=== PATIENT | female | born 1995 | race Caucasian/White ===

== ENCOUNTER 2022-10-16 18:22 | Emergency (ER) | payer OTHER, SELFPAY ==
--- NOTE | 2022-10-16 18:25 | ED.SKABFB ---
HPI - Skin/Abscess/Foreign Bdy General Chief complaint: Skin/Abscess/Foreign Body Stated complaint: fever blister on nose Time Seen by Provider: 10/16/22 18:42 Source: patient and RN notes reviewed Mode of arrival: ambulatory Limitations: no limitations History of Present Illness HPI narrative: 27-year-old female presents with concern for new lesion on her left upper eyelid. She reports she gets cold sores on her nose, she recently had cold sore on her nose. She reports she used topical treatment and it healed, however she had a family and was crying a lot and rubbing her nose and her eyea, she now has a lesion on her left upper eyelid that is painful. She reports some mild blurry vision. She denies any my pain, reports upper eyelid pain. MD complaint: lesion Related Data Home Medications Medication Instructions Recorded Confirmed levothyroxine 25 mcg tablet 25 mcg PO DAILY 10/16/22 10/16/22 norgestimate 0.25 mg-ethinyl 1 tablet PO DAILY 10/16/22 10/16/22 estradiol 35 mcg tablet (Sprintec (28)) Allergies Allergy/AdvReac Type Severity Reaction Status Date / Time No Known Allergies Allergy Mild Verified 07/15/09 19:23 Review of Systems Review of Systems: CONSTITUTIONAL: Denies malaise, chills, sweats, or fever. EYES: Reports blurry vision in the left eye, Reports a lesion and pain to her left upper eyelid ENT: Denies rhinorrhea, congestion, sinus pain, otalgia or sore throat. NEUROLOGIC: Denies numbness, weakness, or headache. PSYCHIATRIC: Denies anxiety or depression. All systems reviewed & are unremarkable except as noted in HPI and below PMFSH Comments At time of signature, agree with nursing past medical, surgical, social and family history. There is no relevant family history pertinent to the presenting complaint Exam Narrative: GENERAL: Well-appearing, well-nourished, and in no acute distress. HEAD: Normocephalic, atraumatic. EYES: PERRLA, conjunctiva and sclera clear bilaterally, and EOMI. Ophthalmic exam unremarkable bilaterally. No nystagmus. Left upper eyelid mildly edematous and erythematous with a herpetic lesion noted on the lash line. Right Upper and lower eyelid unremarkable, no periorbital edema noted. Wood's lamp exam of the left eye unremarkable, no dendritic lesions noted ENT: Nares clear, no rhinorrhea or epistaxis. Mucous membranes moist. NECK: Supple. CHEST: No respiratory distress. Speaks in full sentences. HEART: Regular rate and rhythm. SKIN: Warm, dry, no visible rash. NEURO: Alert and oriented x3. PSYCH: Normal mood and affect Course Course Emergency Course: Patient is aware of diagnosis, understands and agrees to treatment plan. Anticipatory guidance given. Patient agrees to follow-up as directed and is aware of reasons to seek care at the emergency department. Portions of this record may have been created with voice recognition software Level of Care: Express Care Visit Vital Signs Vital signs: Reviewed. MDM - Skin/Abscess/Foreign Bdy MDM Narrative Medical decision making narrative: Consideration of the following conditions may be warranted for the presenting problem, they are not final diagnoses: Bacterial conjunctivitis, allergic conjunctivitis, viral conjunctivitis, foreign body, blepharitis, chalazion, hordeolum, corneal abrasion, preseptal cellulitis, orbital cellulitis. No evidence of proptosis, ophthalmoplegia, vision loss, pain with eye movement. Exam findings show no acute concerns or changes; patient is non-toxic appearing and is in no distress. Patient is appropriate for outpatient treatment and follow-up. Critical Care Time Critical Care Time Critical Care Time: No Discharge Plan Discharge Clinical Impression: Herpes zoster blepharitis Patient Disposition: Home, Self-Care Condition: Stable Instructions: Blepharitis (ED) Additional Instructions: Take medications as directed. You can use a cold washcloth for swelling your ey
[2022-10-16 18:39] VITALS: BP 149/98; PULSE 109; RESP 16; TEMP 37.2; O2SAT 100
== END 2022-10-16 19:11 | disposition home or self-care (01) ==
PROVIDERS: Emergency Provider Nurse Practitioner; PCP Physician Assistant
DX: B02.39 Other herpes zoster eye disease (principal); E03.9 Hypothyroidism, unspecified
CPT/HCPCS: 99213; A9270; G0463

== ENCOUNTER 2023-05-12 17:21 | Emergency (ER) | payer OTHER, SELFPAY ==
--- NOTE | 2023-05-12 17:30 | ED.URI ---
HPI - URI/Sore Throat General Chief Complaint: Eye Problems Stated Complaint: SINUS CONGESITON/EYE DRAINAGE Time Seen by Provider: 05/12/23 17:30 Source: patient Mode of arrival: ambulatory Limitations: no limitations History of Present Illness HPI Narrative: 27 yo F presents with c/o nasal congestion, sinus pressure for 2 days. Reports R eye redness, drainage for 1 day. Afebrile. Mild cough. No CP or SOB. denies N/V/d. Taking carla. All systems reviewed and negative except as noted above. Related Data Home Medications Medication Instructions Recorded Confirmed levothyroxine 25 mcg tablet 25 mcg PO DAILY 10/16/22 05/12/23 Allergies Allergy/AdvReac Type Severity Reaction Status Date / Time No Known Allergies Allergy Mild Verified 05/12/23 17:48 Review of Systems Review of Systems: CONSTITUTIONAL: Denies fever, chills, or sweats. EYES: Denies visual changes. Reports right eye redness and discharge. ENT: Reports rhinorrhea, congestion. Denies sore throat, or otalgia. CARDIOVASCULAR: Denies chest pain, palpitations, or edema. RESPIRATORY: Denies cough or dyspnea. GASTROINTESTINAL: Denies abdominal pain, nausea, vomiting, or diarrhea. GENITOURINARY: Denies dysuria or hematuria. SKIN: Denies rash or itching. MUSCULOSKELETAL: Denies back pain, joint pain, or myalgia. NEUROLOGIC: Denies headache, numbness, or weakness. PSYCHIATRIC: Denies anxiety or depression. All other systems reviewed are negative, except as documented in HPI. PMFSH Comments At time of signature, agree with nursing past medical, surgical, social and family history. There is no relevant family history pertinent to the presenting complaint. Exam Narrative: GENERAL: This is a well-nourished, well-developed patient, in no apparent distress. HEAD: normocephalic, atraumatic. EYES: PERRL. Sclera and conjunctiva erythematous to right eye with purulent drainage. Vision is grossly intact. EARS: External ears normal, auditory canals clear and without drainage, TMs normal without perforation. Hearing grossly intact. NOSE: External nose normal with clear nasal drainage, mild erythema to bilateral nares without swelling. THROAT: Mucous membranes moist, clear postnasal drainage. NECK: Neck supple, non-tender without lymphadenopathy, masses or thyromegaly. CARDIOVASCULAR: Regular rate and rhythm without murmurs, gallops, or rubs. RESPIRATORY: Clear to auscultation. Breath sounds equal bilaterally. No wheezes, rales, or rhonchi. SKIN: warm, Dry, intact with no suspicious lesions or rash, good texture and turgor. NEURO: awake, alert, and oriented to person, place and time. There were no obvious focal neurologic abnormalities. EXTREMITIES: No joint tenderness, effusion, or edema noted. Course Course Level of Care: Express Care Visit Vital Signs Vital signs: Vital Signs Temperature 36.7 C 05/12/23 17:34 Pulse Rate 96 05/12/23 17:34 Respiratory Rate 16 05/12/23 17:34 Blood Pressure 141/89 H 05/12/23 17:34 Pulse Oximetry 100 05/12/23 17:34 Temperature 36.7 C 05/12/23 17:34 Pulse Rate 96 05/12/23 17:34 Respiratory Rate 16 05/12/23 17:34 Blood Pressure 141/89 H 05/12/23 17:34 Pulse Oximetry 100 05/12/23 17:34 Reviewed MDM - URI/Sore Throat MDM Narrative Medical decision making narrative: Patient is aware of diagnosis, understands and agrees to treatment plan. Anticipatory guidance given. Patient agrees to follow-up as directed and is aware of reasons to seek care at the emergency department. Portions of this record may have been created with voice recognition software Differential Diagnosis Differential diagnosis: Likely sinusitis and viral infection Discharge Plan Discharge Clinical Impression: Acute viral sinusitis, Acute bacterial conjunctivitis of right eye Patient Disposition: Home, Self-Care Condition: Stable Instructions: Antibiotic Form, Sinusitis (ED), Conjunctivitis (ED) Sinan
[2023-05-12 17:34] VITALS: BP 141/89; PULSE 96; RESP 16; TEMP 36.7; O2SAT 100
== END 2023-05-12 17:50 | disposition home or self-care (01) ==
PROVIDERS: Emergency Provider Nurse Practitioner Family; PCP Physician Assistant
DX: J01.90 Acute sinusitis, unspecified (principal); H10.31 Unspecified acute conjunctivitis, right eye; E03.9 Hypothyroidism, unspecified
CPT/HCPCS: 99213; G0463